=== PATIENT | male | born 1955 | race Caucasian/White ===

== ENCOUNTER → 2018-01-15 19:06 | Outpatient (CLI) | payer MEDICARE ==
[~2018-01-15 19:06] MED LIST: HYDROCODONE-APA1 TAB PO; NEURONTIN800 MG PO; ZESTORETIC 10/11 TAB PO
[2018-02-20 07:52] VITALS: BMI 34.0
== END | disposition home or self-care (01) ==
LOC: D.SLEEP 08:00
DX: G47.33 Obstructive sleep apnea (adult) (pediatric) (principal)

== ENCOUNTER 2018-02-20 07:19 | Day surgery (SDC) | payer MEDICARE ==
[~2018-02-20] VITALS: Ht 175.3 cm; Wt 104.3 kg
--- NOTE | ~2018-02-20 | OP ---
PATIENT NAME: VIVEK JERRY MEDICAL RECORD: [id number] :59 LOCATION:[facility] ADMISSION DATE: SURGEON: CLAIRE MAYORGA MD DATE OF OPERATION: 02/20/2018 PREOPERATIVE DIAGNOSES: Impingement syndrome, acromioclavicular arthritis, and rotator cuff tear, all of the left shoulder. POSTOPERATIVE DIAGNOSES: Impingement syndrome, acromioclavicular arthritis, and rotator cuff tear, all of the left shoulder. PROCEDURES: 1. Arthroscopic rotator cuff repair of the left shoulder. 2. Arthroscopic distal clavicle excision of the left shoulder done through separate incision -- 1 cm. 3. Arthroscopic subacromial decompression, acromioplasty and bursectomy. SURGEON: Claire Mayorga MD ANESTHESIA: General. INTRAOPERATIVE COMPLICATIONS: None. SUMMARY OF PATHOLOGIC FINDINGS: The patient had a rotator cuff tear at the anterior aspect of the supraspinatus tendon with downward sloping acromion causing full thickness rotator cuff tearing and acromioclavicular arthritis. OPERATIVE SUMMARY IN DETAIL: After obtaining the appropriate preoperative orthopedic surgery consent as well as anesthetic consultation, evaluation and clearance, the patient was brought to the operating room and placed on the operating table in supine position. After general laryngeal mask airway was administered, the patient was placed in right lateral decubitus position. All pressure points well padded to include down leg peroneal pad as well as axillary roll. The patient was held firmly to the operating table using vacuum pack suction system. Left upper extremity and shoulder were then prepped and draped in routine sterile fashion. The arm was held in the [employer] traction boom with 30 degrees of forward flexion, 30 degrees of abduction, 10 pounds of traction laterally. Arthroscopy was established in the glenohumeral joint from the posterior portal. Anterior portal was established in the anterior safe interval. Generalized debridement of the undersurface of the rotator cuff was carried out. Bicipital labral complex was in good shape. Mild amount of biceps tendonitis was noted. Attention then turned to the subacromial space. While in the subacromial space, [place] tissue ablation system was utilized to denude the undersurface of the acromion of all soft tissue elements and release the coracoacromial ligament. A 5-0 barrel bur was used to perform acromioplasty at the level of acromioclavicular joint. Having completed this, through an anterior arthroscopic portal, a 5-0 barrel bur was used to perform a distal clavicle excision at 1 cm. Lastly, the rotator cuff was approached. Decortication was carried out at the supraspinatus tendinous footprint. A mattress suture was placed and a FiberTape was placed in the rotator cuff anchored laterally with a 5.5 SwiveLock from [employer]. Having completed this, arthroscopy portals were closed in routine interrupted fashion using 4-0 Prolene. Sterile dressings were applied. The patient was awakened, taken to the recovery room in stable condition. All final needle and sponge counts were correct. OPERATIVE REPORT [id number] VIVEK JERRY TRANSINT:[id number] Voice Confirmation ID: [id number] DOCUMENT ID: [id number] TIERRA YE, CLAIRE SALCEDO at 1225 CC: [id number] DICTATION DATE: 02/20/18 1144 [employer] [place] ATTORNEY: 02/20/18 1223 [id number] [place] [address]
[~2018-02-20 07:19] MED LIST changes: -HYDROCODONE-APA1 TAB PO
[2018-02-20 07:52] VITALS: BP 123/79; Ht 175.3 cm; Wt 104.3 kg
[2018-02-20 08:11] LABS: HEMATOCRIT 48.2 % (42.0-54.0); HEMOGLOBIN 18.2 g/dL (13.5-17.5); MCH 33.3 pg (26.0-34.0); MCHC 37.8 g/dL (31.0-37.0); MCV 88.3 fL (80.0-100.0); MEAN PLATELET VOLUME 9.5 fL (7.4-10.4); RBC 5.46 10x6/uL (4.20-6.10); RDW 14.7 % (11.5-14.5); WBC 7.7 10x3/uL (4.8-10.8)
[2018-02-20 08:33] LABS: ANION GAP 12.9 mmol/L (8-16); CALCIUM 8.9 mg/dL (8.5-10.1); CARBON DIOXIDE 27.5 mmol/L (21.0-32.0); CREATININE - SERUM 1.2 mg/dL (0.6-1.3); POTASSIUM - SERUM 5.4 mmol/L (3.5-5.1)
[2018-02-20] MEDS ORDERED: HYDROCODONE-APA1 TAB PO (11:41)
== END 2018-02-20 13:37 | disposition home or self-care (01) ==
LOC: D.OPS 07:19 → D.PAN 11:30 → D.OPS 13:37 → D.PAN 15:50 → D.OPS 17:15
PROVIDERS: Anesthesiology
DX: M75.102 Unspecified rotator cuff tear or rupture of left shoulder, not specified as traumatic (principal); M75.42 Impingement syndrome of left shoulder; M19.012 Primary osteoarthritis, left shoulder; I10 Essential (primary) hypertension; G47.30 Sleep apnea, unspecified; E66.9 Obesity, unspecified; Z01.812 Encounter for preprocedural laboratory examination

== ENCOUNTER 2018-05-05 09:54 | Day surgery (SDC) | payer MEDICARE ==
[~2018-05-05] VITALS: Ht 175.3 cm; Wt 106.6 kg
--- NOTE | ~2018-05-05 | OP ---
PATIENT NAME: VIVEK JERRY MEDICAL RECORD: [id number] :59 LOCATION:[facility] ADMISSION DATE: SURGEON: CLAIRE MAYORGA MD DATE OF OPERATION: 05/05/2018 PREOPERATIVE DIAGNOSIS: Adhesive capsulitis of the right shoulder. POSTOPERATIVE DIAGNOSIS: Adhesive capsulitis of the right shoulder. PROCEDURE: Manipulation under anesthesia. ANESTHESIA: TIVA. INTRAOPERATIVE COMPLICATIONS: None. SUMMARY OF PATHOLOGIC FINDINGS: The patient did have very tight inferior and anterior capsule that was nicely released with manipulation. OPERATIVE SUMMARY IN DETAIL: After obtaining the appropriate preoperative orthopedic surgery consent as well as anesthetic consultation, evaluation, and clearance, the patient was brought to the operating room and placed on the operating table in supine position. After adequate general TIVA anesthesia was administered, the patient's scapula was stabilized. It was first manipulated in abduction with excellent release of adhesions followed by forward flexion, external rotation, internal rotation, as well as external rotation at 90 degrees of abduction. Good release was obtained. Having completed this, the patient was awakened and taken to recovery room in stable condition. All final needle and sponge counts were correct. TRANSINT:[id number] Voice Confirmation ID: [id number] DOCUMENT ID: [id number] CLAIRE MAYORGA MD at 1920 CC: [id number] DICTATION DATE: 05/05/18 1633 [employer] SIGNAL OPERATOR: 05/05/18 1856 [facility] 05/05/18 [facility] [address] [place] [address]
[~2018-05-05 09:54] MED LIST changes: +HYDROCODONE-APA1 TAB PO
[2018-05-05 10:12] LABS: HEMATOCRIT 52.2 % (42.0-54.0); HEMOGLOBIN 20.1 g/dL (13.5-17.5); MCH 34.2 pg (26.0-34.0); MCHC 38.5 g/dL (31.0-37.0); MCV 88.8 fL (80.0-100.0); MEAN PLATELET VOLUME 9.4 fL (7.4-10.4); RBC 5.88 10x6/uL (4.20-6.10); RDW 14.6 % (11.5-14.5); WBC 6.8 10x3/uL (4.8-10.8)
[2018-05-05 11:18] LABS: ANION GAP 8.7 mmol/L (8-16); CALCIUM 9.4 mg/dL (8.5-10.1); CARBON DIOXIDE 34.9 mmol/L (21.0-32.0); CREATININE - SERUM 1.1 mg/dL (0.6-1.3); POTASSIUM - SERUM 3.6 mmol/L (3.5-5.1)
[2018-05-05 13:55] VITALS: BP 118/78; Ht 175.3 cm; Wt 106.6 kg
== END 2018-05-05 18:15 | disposition home or self-care (01) ==
LOC: D.OPS 09:54 → D.PAN 12:30 → D.OPS 14:45 → D.PAN 14:45 → D.OPS 18:15
PROVIDERS: Anesthesiology
DX: M75.01 Adhesive capsulitis of right shoulder (principal); Z01.812 Encounter for preprocedural laboratory examination